=== PATIENT | female | born 1985 | race Caucasian/White ===

== ENCOUNTER → 2016-10-17 | Outpatient (CLI) | payer OTHER ==
[2015-06-02 11:39] VITALS: BP 85/57
[~2016-10-17] MED LIST: OXYC-244 PO
[2016-10-17 10:53] LABS: BASO % 0 % (0-3); EOS % 1 % (0-3); HEMATOCRIT 39.1 % (36.0-47.0); HEMOGLOBIN 13.5 g/dL (12.0-15.5); LYMPH % 38 % (24-48); MEAN CORPUSCULAR HEMOGLOBIN 31 pg (25-35); MEAN CORPUSCULAR HGB CONC 35 g/dL (31-37); MEAN CORPUSCULAR VOLUME 89 fL (79-100); MONO % 8 % (0-9); NEUT % 52 % (31-73); PLATELET COUNT 296 x10^3/uL (140-400); RED BLOOD COUNT 4.38 x10^6/uL (3.50-5.40); RED CELL DISTRIBUTION WIDTH 12.3 % (11.5-14.5); WHITE BLOOD COUNT 7.8 x10^3/uL (4.0-11.0)
[2016-10-17 11:18] LABS: FREE T4 1.14 ng/dL (0.76-1.46)
== END | disposition home or self-care (01) ==
LOC: LAB 10:30
PROVIDERS: ATTEND Obstetrics & Gynecology
DX: N93.9 Abnormal uterine and vaginal bleeding, unspecified (principal)
CPT/HCPCS: 36415; 84146; 84439; 84443; 85027

== ENCOUNTER → 2016-10-26 | Outpatient (CLI) | payer OTHER ==
[2015-06-02 11:39] VITALS: BP 85/57
--- NOTE | 2016-10-26 09:03 | RAD ---
EXAM: Pelvic ultrasound. HISTORY: Abnormal uterine bleeding. COMPARISON: 05/05/2015. FINDINGS: Sonographic evaluation of the pelvis was performed transabdominally and transvaginally. The uterus is anteverted and measures 8.9 x 4.4 x 6.3 cm. An intrauterine device is in expected position. The endometrial stripe measures 7 mm at the fundus, but is thin elsewhere. No focal masses are seen. The right ovary measures 4.3 x 4.2 x 3.6 cm. It contains a dominant follicle or small cyst that measures 3.4 x 2.7 x 2.5 cm. It is unclear if this is the same lesion seen on the study of 2014, or a new follicle. The left ovary measures 3.3 x 3.1 x 2.1 cm and contains small follicles. There is normal flow bilaterally. IMPRESSION: 1. Intrauterine device in place. The endometrial stripe measures 7 mm at the fundus but is thin elsewhere. 2. 3.4 cm right ovarian cyst versus dominant follicle. This is most likely benign. A follow-up could confirm resolution if there is persistent concern.
== END | disposition home or self-care (01) ==
LOC: US 07:00
PROVIDERS: ATTEND Obstetrics & Gynecology
DX: N93.9 Abnormal uterine and vaginal bleeding, unspecified (principal)
CPT/HCPCS: 76856

== ENCOUNTER → 2017-02-22 | Outpatient (CLI) | payer OTHER ==
[2015-06-02 11:39] VITALS: BP 85/57
[~2017-02-22] MED LIST changes: -OXYC-244 PO; +OXYC-327 PO
--- NOTE | 2017-02-22 09:35 | RAD ---
Pelvic ultrasound, 02/22/2017: History: Follow-up cyst Transabdominal and transvaginal scans were obtained. The uterus and ovaries were not adequately visualized on the transabdominal scans. The transvaginal scans show the uterus to measure 8 x 4.7 x 3.7 cm. It contains an echogenic structure centrally compatible with an IUD. The central uterine echo complex measures 4 mm in AP dimension. There is a small Nabothian cyst in the cervical region. There are small follicular cysts in both ovaries. There is a dominant 2.6 cm cyst in the left ovary, likely a functional cyst. The dominant cyst seen in the right ovary on the 10/26/2016 study has resolved. The adnexal regions are otherwise unremarkable. No free fluid is evident in the pelvis. IMPRESSION: 1. An IUD remains in place in satisfactory position. 2. Resolution of the previously seen right ovarian cyst. 3. New small dominant functional cyst in the left ovary.
== END | disposition home or self-care (01) ==
LOC: US 05:48
PROVIDERS: ATTEND Obstetrics & Gynecology
DX: N83.202 Unspecified ovarian cyst, left side (principal); N88.8 Other specified noninflammatory disorders of cervix uteri
CPT/HCPCS: 76830; 76856

== ENCOUNTER 2017-03-09 03:20 | Emergency (ER) | payer OTHER ==
[~2017-03-09] VITALS: Ht 160 cm; Wt 73.9 kg
[2017-03-09 03:56] VITALS: BP 109/61
[2017-03-09] MEDS ORDERED: ONDANSETRON PF 4 MG/2 ML VIAL. IV ONE ×2 (04:30)
[2017-03-09] MEDS ORDERED: IV NORMAL SALINE 1000ML BAG 1,000 ML IV ONE (04:30)
[2017-03-09] MEDS ORDERED: KETOROLAC TROMETHAMINE 30 MG/ML INJ. IV ONE (04:30)
--- NOTE | 2017-03-09 05:20 | RAD ---
PELVIS W/TV Clinical Indication: pelvic pain Comparison: Pelvic ultrasound, February 22, 2017. TECHNIQUE: Real-time ultrasound imaging of the pelvis using transabdominal and transvaginal window is performed. Findings: Uterus measures 8.7 x 5.7 x 4.4 cm. No focal abnormality. IUD in appropriate position. Endometrial stripe is normal measuring 2 mm. There is free fluid adjacent to the right ovary. There is normal blood flow in the ovaries. The right ovary measures 2.8 x 2.1 x 1.4 cm. The left ovary measures 5. 4 x 4 by 2.9 cm. There is a dominant left follicle measuring up to 2.6 cm. There is a second irregular cyst that may be involuting measuring up to 1.4 cm. IMPRESSION: 1. Normal blood flow in the ovaries. Left ovary functional cyst. 2. Mild free fluid adjacent to the right ovary. Electronically signed by: Jorden Maier MD (03/09/2017 5:16 AM) [facility]
[2017-03-09 05:21] LABS: BASO % 1 % (0-3); EOS % 1 % (0-3); HEMATOCRIT 40.8 % (36.0-47.0); HEMOGLOBIN 14.3 g/dL (12.0-15.5); LYMPH # 3.8 x10^3/uL (1.0-4.8); LYMPH % 44 % (24-48); MEAN CORPUSCULAR HEMOGLOBIN 32 pg (25-35); MEAN CORPUSCULAR HGB CONC 35 g/dL (31-37); MEAN CORPUSCULAR VOLUME 91 fL (79-100); MONO % 6 % (0-9); NEUT % 49 % (31-73); PLATELET COUNT 332 x10^3/uL (140-400); RED BLOOD COUNT 4.51 x10^6/uL (3.50-5.40); RED CELL DISTRIBUTION WIDTH 12.2 % (11.5-14.5); WHITE BLOOD COUNT 8.8 x10^3/uL (4.0-11.0)
[2017-03-09 05:30] LABS: CALCIUM 8.9 mg/dL (8.5-10.1); CREATININE 0.5 mg/dL (0.6-1.0); GFR 144.9; POTASSIUM 3.3 mmol/L (3.5-5.1)
[2017-03-09 05:34] LABS: BILIRUBIN,URINE NEGATIVE (NEG); GLUCOSE,URINE NEGATIVE (NEG); NITRITE,URINE NEGATIVE (NEG); PH,URINE 5.5; PROTEIN,URINE NEGATIVE (NEG-TRACE); UROBILINOGEN,URINE 0.2 mg/dL (0.2 mg/dL)
[2017-03-09 05:37] LABS: ALBUMIN 4.1 g/dL (3.4-5.0); ALBUMIN/GLOBULIN RATIO 1.1 (1.0-1.7); TOTAL BILIRUBIN 0.3 mg/dL (0.2-1.0)
[2017-03-09 05:45] LABS: BACTERIA,URINE 0 /HPF (0-FEW); RBC,URINE 0 /HPF (0-2); SQUAMOUS EPITHELIAL CELL,UR MOD /LPF; WBC,URINE 0 /HPF (0-4)
[2017-03-09] MEDS ORDERED: TRAM-48 PO (06:14)
--- NOTE | 2017-03-09 06:14 | PHYS DOC ---
Past Medical History Past Medical History: No Pertinent History Past Surgical History: Appendectomy, Other Additional Past Surgical Histo: CYST REMOVAL Alcohol Use: Occasionally Drug Use: None Adult General Chief Complaint Chief Complaint: ABDOMINAL PAIN HPI HPI Patient is a 31 year old female who presents today complaining of abdominal pain. Patient has any fevers shakes chills nausea vomiting diarrhea. Patient has a vaginal discharge. Patient has a dysuria frequency or urgency. Patient has no history of hypertension diabetes liver longer kidney pals. Patient reports she is status post appendectomy and has ovarian cysts. Patient does not smoke. Drinks occasionally. Constitutional: Denies fever or chills [] Eyes: Denies change in visual acuity, redness, or eye pain [] HENT: Denies nasal congestion or sore throat [] All other review systems are negative except as documented in the history of present illness portion. Constitutional: Well developed, well nourished, no acute distress, non-toxic appearance. [] HENT: Normocephalic, atraumatic, bilateral external ears normal, oropharynx moist, no oral exudates, nose normal. [] Eyes: no discharge. [] Neck: Normal range of motion, no tenderness, supple, no stridor. [] Cardiovascular:Heart rate regular rhythm, Lungs & Thorax: Bilateral breath sounds clear to auscultation [] Abdomen: Bowel sounds normal, soft, mild tenderness tenderness, no masses, no pulsatile masses. [] Skin: Warm, dry, no erythema, no rash. [] Back: No tenderness, no CVA tenderness. [] Extremities: No tenderness, no cyanosis, no clubbing, ROM intact, no edema. [] Neurologic: Alert and oriented X 3, normal motor function, normal sensory function, no focal deficits noted. [] Psychologic: Affect normal, judgement normal, mood normal. [] Assessment and plan 31-year-old female who presents today complaining of abdominal pain. Patient's clinical hemodynamically stable. Patient's workup in the ER is been unremarkable. Patient's last ultrasound did not reveal any acute pathology. Patient was given adequate pain medicines in the ER and will be sent home in stable condition to follow up with her primary care physician. Current Medications Current Medications Current Medications Medications (Trade) Dose Ordered Sig/Roberto Start Time Stop Time Status Last Admin Dose Admin Ketorolac Tromethamine (Toradol) 30 mg 1X ONCE 03/09/17 04:30 03/09/17 04:31 DC 03/09/17 05:18 30 MG Ondansetron HCl (Zofran) 4 mg 1X ONCE 03/09/17 04:30 03/09/17 04:31 DC 03/09/17 05:47 4 MG Sodium Chloride 1,000 ml @ 1,000 mls/hr 1X ONCE 03/09/17 04:30 03/09/17 05:29 DC 03/09/17 05:18 1,000 MLS/HR Allergies Allergies Allergies Coded Allergies Type Severity Reaction Last Updated Verified No Known Drug Allergies 06/02/15 No Current Patient Data Vital Signs Vital Signs Date Time Temp Pulse Resp B/P (MAP) Pulse Ox O2 Delivery O2 Flow Rate FiO2 03/09/17 03:56 98.1 100 16 109/61 (77) 94 Room Air 98.1 Lab Values Laboratory Tests Test 03/09/17 04:03 03/09/17 04:28 03/09/17 04:50 POC Urine HCG, Qualitative Hcg negative (Negative) White Blood Count 8.8 x10^3/uL (4.0-11.0) Red Blood Count 4.51 x10^6/uL (3.50-5.40) Hemoglobin 14.3 g/dL (12.0-15.5) Hematocrit 40.8 % (36.0-47.0) Mean Corpuscular Volume 91 fL (79-100) Mean Corpuscular Hemoglobin 32 pg (25-35) Mean Corpuscular Hemoglobin Concent 35 g/dL (31-37) Red Cell Distribution Width 12.2 % (11.5-14.5) Platelet Count 332 x10^3/uL (140-400) Neutrophils (%) (Auto) 49 % (31-73) Lymphocytes (%) (Auto) 44 % (24-48) Monocytes (%) (Auto) 6 % (0-9) Eosinophils (%) (Auto) 1 % (0-3) Basophils (%) (Auto) 1 % (0-3) Neutrophils # (Auto) 4.3 x10^3uL (1.8-7.7) Lymphocytes # (Auto) 3.8 x10^3/uL (1.0-4.8) Monocytes # (Auto) 0.5 x10^3/uL (0.0-1.1) Eosinophils # (Auto) 0.1 x10^3/uL (0.0-0.7) Basophils # (Auto) 0.0 x10^3/uL (0.0-0.2) Sodium Level 142 mmol/L (136-145) Potassium Level 3.3 mmol/L (3.5-5.1) L Chloride Level 105 mmol/L (98-107) Carbon Dioxide Level 22 mmol/L (21-32) Anion Gap 15 (6-14) H Blood Urea Nitrogen 9 mg/dL (7-20) Creatinine 0.5 mg/dL (0.6-1.0) L Estimated GFR (Cockcroft-Gault) 144.9 BUN/Creatinine Ratio 18 (6-20) Glucose Level 91 mg/dL (70-99) Calcium Level 8.9 mg/dL (8.5-10.1) Total Bilirubin 0.3 mg/dL (0.2-1.0) Aspartate Amino Transferase (AST) 15 U/L (15-37) Alanine Aminotransferase (ALT) 18 U/L (14-59) Alkaline Phosphatase 67 U/L (46-116) Total Protein 8.0 g/dL (6.4-8.2) Albumin 4.1 g/dL (3.4-5.0) Albumin/Globulin Ratio 1.1 (1.0-1.7) Lipase 126 U/L (73-393) Urine Collection Type Unknown Urine Color Yellow Urine Clarity Clear Urine pH 5.5 Urine Specific [place] <=1.005 Urine Protein Negative mg/dL (NEG-TRACE) Urine Glucose (UA) Negative mg/dL (NEG) Urine Ketones (Stick) Negative mg/dL (NEG) Urine Blood Negative (NEG) Urine Nitrite Negative (NEG) Urine Bilirubin Negative (NEG) Urine Urobilinogen Dipstick 0.2 mg/dL (0.2 mg/dL) Urine Leukocyte Esterase Negative (NEG) Urine RBC 0 /HPF (0-2) Urine WBC 0 /HPF (0-4) Urine Squamous Epithelial Cells Mod /LPF Urine Bacteria 0 /HPF (0-FEW) Urine Mucus Slight /LPF Laboratory Tests 03/09/17 04:28 Laboratory Tests 03/09/17 04:28 EKG EKG [] Radiology/Procedures Radiology/Procedures [] Course & Med Decision Making Course & Med Decision Making Pertinent Labs and Imaging studies reviewed. (See chart for details) [] Dragon Disclaimer Dragon Disclaimer This electronic medical record was generated, in whole or in part, using a voice recognition dictation system. Departure Departure Impression: Primary Impression: Ovarian cyst Disposition: HOME, SELF-CARE Condition: STABLE Referrals: NON,STAFF (PCP) Patient Instructions: Ovarian Cyst Scripts Tramadol Hcl (ULTRAM) 50 Mg Tablet 1 TAB PO Q6HRS, #14 TAB Prov: ROSAMARIA YANCEY MD 03/09/17 ROSAMARIA YANCEY MD Mar 09, 2017 06:14
== END 2017-03-09 06:20 | disposition home or self-care (01) ==
LOC: ER 03:20
DX: N83.202 Unspecified ovarian cyst, left side (principal); Z90.49 Acquired absence of other specified parts of digestive tract
CPT/HCPCS: 36415; 76830; 76856; 80053; 81001; 81025; 83690; 85027; 96361; 96374; 96375; 99285; J1885; J2405; J7030

== ENCOUNTER → 2021-07-26 | Outpatient (CLI) | payer OTHER ==
[~2021-07-26] MED LIST changes: -OXYC-327 PO; +OXYC1TAB19 PO; +TRAM-48 PO
== END ==
LOC: LAB 08:55
PROVIDERS: ATTEND Internal Medicine Pulmonary Disease
DX: U07.1 COVID-19 (principal)
CPT/HCPCS: U0003; U0005